=== PATIENT | female | born 1940 | race Caucasian/White ===

== ENCOUNTER 2017-11-22 08:13 | Observation (INO) | payer MEDICARE ==
[2017-11-22] MEDS ORDERED: Ketorolac INJ* 30 MG/ML 1 ML VIAL IV PUSH ONE (08:44)
[2017-11-22] MEDS ORDERED: Morphine INJ** 4 MG/ML 1 ML CARPUJECT IV ONE (08:44)
[2017-11-22] MEDS ORDERED: Bupivacaine 0.5%* 50 ML VIAL INJ ONE (08:44)
[2017-11-22] MEDS ORDERED: NS 0.9% 1000 ML* 1,000 ML IV ONE (08:44)
--- NOTE | 2017-11-22 08:48 | ED ---
Back Pain - HPI Summary HPI Summary: This is leann Barnhart documenting for attending Mitch Oshea MD. This patient is a 77 year old F presenting to [facility] with a chief complaint of a searing R leg pain and back pain since over a week ago that has been worsening. The patient rates the pain 10/10 in severity. The pt reports that the pain radiates up her R leg up to her buttocks and back. She has pain even when sitting without moving. She also reports difficulty ambulating, constipation for days, and loss of appetite (hasnt eaten in the last couple days). Patient denies losing control of bowels or bladder, numbness between legs, fever, abdominal pain, CP, SOB, nausea, vomiting, and numbness in general. She saw her PCP on 11/17 and was prescribed muscle relaxer and tramadol but meds are not helping the pain. The patient is not a smoker. - History of Current Complaint Chief Complaint: EDBackInjuryPain Stated Complaint: RT HIP PAIN Time Seen by Provider: 11/22/17 08:24 Hx Obtained From: Patient, Family/Scallop Cutter Onset/Duration: Sudden Onset, Lasting Weeks - over a week ago Onset/Duration: Started Weeks Ago - over a week ago, Still Present, Worse Since - worsening Timing: Constant Back Pain Location: Is Discrete @ - R leg radiating up to her lower back Severity Initially: Severe Severity Currently: Severe Pain Intensity: 10 Pain Scale Used: 0-10 Numeric Character: Sharp - "Searing" Aggravating Symptom(s): Movement, Walking Associated Signs And Symptoms: Positive: Pain with Weight Bearing, Other - difficulty ambulating, constipation for days, loss of appetite (hasnt eaten in the last couple days). Negative: Bladder Incontinence, Bowel Incontinence - Allergies/Home Medications Allergies/Adverse Reactions: Allergies Allergy/AdvReac Type Severity Reaction Status Date / Time mold Allergy Eyes Verified 11/22/17 08:50 Itchy/Swollen/Red/Watery CHICKEN Allergy ACCORDING Uncoded 08/16/15 08:36 TO ALLERGY TESTING Home Medications: Home Medications Cyclobenzaprine TAB* [Flexeril 10 MG TAB*] 10 mg PO TID PRN 11/22/17 [History Confirmed 11/22/17] Lisinopril 20 mg PO DAILY 11/22/17 [History Confirmed 11/22/17] Tramadol HCl 50 mg PO Q8H PRN 11/22/17 [History Confirmed 11/22/17] methylPREDNISolone [Medrol] 4 mg PO DAILY 11/22/17 [History Confirmed 11/22/17] PMH/Surg Hx/FS Hx/Imm Hx Endocrine/Hematology History: Denies: Hx Diabetes, Hx Thyroid Disease Cardiovascular History: Reports: Hx Hypertension Respiratory History: Denies: Hx Asthma, Hx Chronic Obstructive Pulmonary Disease (COPD) GI History: Reports: Other GI Disorders - OCCASIONAL UNCONTROL BOWEL MOVEMENT, DUE TO DAMAGE FROM RADIATION Denies: Hx Ulcer History: Reports: Hx Kidney Stones - LEFT SIDE, Other Problems/Disorders - LEFT HYDRONEPHROSIS Musculoskeletal History: Reports: Hx Arthritis - RIGHT FOOT, BILATERAL HANDS Sensory History: Denies: Hx Contacts or Glasses, Hx Hearing Aid Opthamlomology History: Denies: Hx Contacts or Glasses - Cancer History Cancer Type, Location and Year: uterine Hx Chemotherapy: No - Surgical History Surgery Procedure, Year, and Place: TONSILLECTOMY A CHILD. 2005 HYSTERECTOMY WITH BILATERAL S&O, [facility]. 2007 LAPAROSCOPIC CHOLECYSTECTOMY, [facility] Hx Anesthesia Reactions: No Infectious Disease History: No Infectious Disease History: Denies: Hx Hepatitis, Hx Human Immunodeficiency Virus (HIV), Traveled Outside the [place] in Last 30 Days - Family History Known Family History: Positive: Hypertension, Other - kidnsey stones - Social History Occupation: Retired Alcohol Use: None Hx Substance Use: No Substance Use Type: Reports: None Hx Tobacco Use: No Smoking Status (MU): Never Smoked Tobacco Review of Systems Negative: Chest Pain Negative: Shortness Of Breath Positive: Other - constipation for days, and loss of appetite (hasnt eaten in the last couple days), denies losing control of bowels . Negative: Abdominal Pain, Vomiting, Nausea Positive: other - denies losing control of bladder Positive: Other - searing R leg pain radiating up her buttocks and back, difficulty ambulating, denies numbness between legs, denies numbness in general All Other Systems Reviewed And Are Negative: Yes Physical Exam - Summary Physical Exam Summary: Appearance: Well appearing, no pain distress Skin: warm, dry, reflects adequate perfusion Head/face: normal Eyes: EOMI, CAMILLE ENT: normal Neck: supple, non-tender Respiratory: CTA, breath sounds present Cardiovascular: RRR, pulses symmetrical Abdomen: non-tender, soft Bowel Sounds: present Musculoskeletal: 2+ patellar reflex, normal tone bilaterally. Tenderness in lower right lumbar musculature and piriformis. Extremely limited ROM due to pain. Positive straight leg raise on right side. Neuro: normal, sensory motor intact, A&Ox3 Triage Information Reviewed: Yes Vital Signs On Initial Exam: Initial Vitals Temp Pulse Resp BP Pulse Ox 97.8 F 79 15 139/62 100 11/22/17 08:20 11/22/17 08:20 11/22/17 08:20 11/22/17 08:20 11/22/17 08:20 Vital Signs Reviewed: Yes Procedures - Procedure Summary Procedure Summary: Trigger point injection: Reason: Right lumbar back pain with radiculopathy Description: The patient was assisted into a left lateral decubitus position. The right lumbar musculature and piriformis area were cleaned with alcohol. These areas were injected with a total of 20 cc of 0.5% bupivacaine and divided aliquots. Pain relief was excellent, allowing her to stand but not walk. She tolerated this well without complication. Diagnostics - Vital Signs Vital Signs Temp Pulse Resp BP Pulse Ox 11/22/17 08:20 97.8 F 79 15 139/62 100 - Laboratory Result Diagrams: 11/22/17 08:53 11/22/17 08:53 Lab Statement: Any lab studies that have been ordered have been reviewed, and results considered in the medical decision making process. - CT Lumbar Spine CT CT Interpretation Completed By: Radiologist - Degenerative disc disease at L5- S1 with broad-based protrusion. Mild spinal stenosis is noted. ED Physician has reviewed this report. - Ultrasound No standard instances Ultrasound Interpretation Completed By: Radiologist - Liver Ultrasound revealed : Patient is status post cholecystectomy with mild intrahepatic duct dilatation. Common duct measures up to 0.8 cm. This may be due to postcholecystectomy state. Pancreatic head is poorly visualized. Fullness of the right renal collecting system is noted. ED Physician has reviewed this report. Re-Evaluation - Re-Evaluation 1 Re-Evaluation Time: 10:43 Change: Improved Comment: Pain is better, but she still can not walk. Will order gallbladder US. He is aware she has no gallbladder, he is ordering it to look at her RUQ because her liver enzymes are elevated. Back Pain Course/Dx - Course Course Of Treatment: Patient with a great deal of discomfort from right radiculopathy. CT scan of the lumbar spine confirms significant degenerative disease and disc protrusion at L5-S1. She has some canal stenosis as well. A trigger point injection as well as standard pain medication has gotten her to the point where she was able to stand. She is still unable to walk at this point. I discussed the case with the neurosurgeon who wishes to have an MRI done this weekend and will see her in consultation. Incidentally, her LFTs are elevated. She has no right upper quadrant pain and has no gallbladder. There is some biliary duct dilation on ultrasound. She'll be admitted to the medical service by the hospitalist team for further evaluation. - Diagnoses Provider Diagnoses: Herniated disc, Lumbar back pain with radiculopathy affecting right lower extremity, Intractable back pain, Elevated LFTs - Provider Notifications Discussed Care Of Patient With: Jeremy Aguilar - Hospitalist Time Discussed With Above Provider: 10:59 Instructed by Provider To: Admit As Inpatient Discharge - Sign-Out/Discharge Documenting (check all that apply): Patient Departure - Discharge Plan Condition: Fair Disposition: ADMITTED TO [facility] - Billing Disposition and Condition Condition: FAIR Disposition: Admitted to [facility] Consult Consult: 10:56 Consult with Alfonzo Young MD from Neuro Surg. who requested an MRI to be done. 11:00 Consult with Obdulia Bourne MD who said they will obtain the MRI during the weekend if they are called in for any other purpose
[2017-11-22 09:01] LABS: ABS Basophils 0.1 10^3/ul (0-0.2); ABS Eosinophils 0.2 10^3/ul (0-0.6); ABS Lymphocytes 1.3 10^3/ul (1.0-4.8); ABS Monocytes 1.2 10^3/ul (0-0.8); ABS Neutrophils 11.7 10^3/ul (1.5-7.7); ABS Nucleated RBC 0 10^3/ul; Eosinophil % 1.1 % (0-6); Hematocrit 42 % (35-47); Hemoglobin 14.1 g/dl (12.0-16.0); Lymphocyte % 8.8 % (25-47); Mean Corpuscular HGB Conc 34 g/dl (31-36); Mean Corpuscular Hemoglobin 31 pg (27-31); Mean Corpuscular Volume 91 fL (80-97); Nucleated Red Blood Cells % 0; Platelet Count 388 10^3/ul (150-450); Red Blood Count 4.55 10^6/ul (4.00-5.40); Red Cell Distribution Width 14 % (10.5-15); White Blood Count 14.5 10^3/ul (3.5-10.8)
[2017-11-22 09:10] LABS: INR 0.99 (0.77-1.02)
[2017-11-22 09:17] LABS: EGFR Non-African American 83.5 (>60)
--- NOTE | 2017-11-22 09:50 | RAD ---
Indication: Right-sided radiculopathy. CT of the lumbar spine was obtained in the axial plane. Sagittal and coronal reconstructed images were obtained. At L5-S1 there is degenerative disc disease. Broad-based protrusion flattens the thecal sac. No central or foraminal stenosis is noted. Moderate facet hypertrophy is noted. At L4-L5 grade 1 spondylolisthesis of L4 on 5 with broad-based protrusion is noted. Facet arthropathy is noted. Moderate degree of spinal stenosis is noted. There is suggestion of broad-based protrusion in the right posterior lateral aspect of the disc space however no definite nerve root impingement is noted. At L3-L4 broad-based protrusion and facet hypertrophy is noted. Mild spinal stenosis is noted. No definite foraminal stenosis is noted. At L2-L3 broad-based protrusion flattens the thecal sac. Moderate degree of facet arthropathy is noted. No central foraminal stenosis is noted. At T12-L1 degenerative disc disease is noted. No central or foraminal stenosis is noted. T11-T12 disc space is normal. IMPRESSION: Degenerative disc disease at L5-S1 with broad-based protrusion. Mild spinal stenosis is noted. At L4-L5 grade 1 spondylolisthesis with broad-based protrusion and facet hypertrophy resulting in moderate degree of spinal stenosis. Broad-based protrusion extensive the foramen however no definite nerve root impingement is noted. Degenerative disc disease at L3-L4 with mild spinal stenosis.
[2017-11-22 09:55] LABS: Urine Appearance Cloudy; Urine Blood Negative (Negative); Urine Color Amber; Urine Ketones 1+ (Negative); Urine Protein 1+(30 mg/dL) (Negative); Urine Red Blood Cell 2+(6-10/hpf) (Absent); Urine Urobilinogen Positive (Negative); Urine White Blood Cell 2+(11-20/hpf) (Absent)
[2017-11-22] MEDS ORDERED: Morphine INJ* 2 MG/ML 1 ML SYRINGE (TWO MG - NEW SYRINGE VERSION) ONE (10:09)
[2017-11-22] MEDS ORDERED: Morphine INJ* 2 MG/ML 1 ML SYRINGE (TWO MG - NEW SYRINGE VERSION) IV ONE (10:10)
[2017-11-22] MEDS ORDERED: Ondansetron INJ* 2 MG/ML VIAL IV PRN (11:54)
[2017-11-22] MEDS ORDERED: Morphine INJ* 2 MG/ML 1 ML SYRINGE (TWO MG - NEW SYRINGE VERSION) IV PRN (11:54)
[2017-11-22] MEDS ORDERED: Cyclobenzaprine TAB* 10 MG PO PRN (11:57)
[2017-11-22] MEDS ORDERED: methylPREDNISolone TAB* 4 MG PO ONE (12:00)
--- NOTE | 2017-11-22 12:12 | RAD ---
Indication: Elevated liver enzymes. Real-time sonography of the right upper quadrant was performed. The liver measures 15.2 cm in length. There are prominent intrahepatic ducts noted. The common duct measures 18 mm. This may be due to postcholecystectomy state. The patient is status post cholecystectomy. The pancreas body and tail appears to be unremarkable with no evidence of pancreatic duct dilatation although the pancreatic head is poorly identified. The right kidney measures 10.6 x 4.4 x 4.7 cm with fullness of the right renal collecting system. IMPRESSION: Patient is status post cholecystectomy with mild intrahepatic duct dilatation. Common duct measures up to 0.8 cm. This may be due to postcholecystectomy state. Pancreatic head is poorly visualized. Fullness of the right renal collecting system is noted.
[2017-11-22] MEDS: Lidocaine PATCH 5%* 1 PATCH TRANSDERM SCH (14:12)
[2017-11-22] MEDS: Heparin VIAL(*) 5000 UNITS/ML VIAL (FIVE THOUSAND) SUBCUT SCH ×2 (14:12→21:24)
--- NOTE | 2017-11-22 16:08 | RAD ---
Indication: Back pain, lumbar radiculopathy. 2 views of the lumbar spine as well as lateral views in flexion and extension demonstrates grade 1 spondylolisthesis of L4 on 5. Endplate changes at L5-S1 is noted. No fracture is noted. Dextroscoliosis centered at L2-L3. IMPRESSION: Grade 1 spondylolisthesis of L4 on 5. Degenerative disc disease at L5-S1 with osteophyte formation.
[2017-11-22] MEDS: Ascorbic Acid TAB* 500 MG PO SCH (16:34)
[2017-11-22] MEDS: Lisinopril TAB* 10 MG PO SCH (16:35)
[2017-11-22] MEDS: Cholecalciferol TAB* 1000 UNITS PO SCH (16:35)
[2017-11-22] MEDS ORDERED: CALCIUM CARBONATE PO SCH (18:00)
[2017-11-22] MEDS ORDERED: MAGNESIUM OX PO SCH (18:00)
[2017-11-22] MEDS ORDERED: cefTRIAXone(*) 1 GM in NS 0.9% 50 ML* 50 ML IVPB SCH (19:00)
--- NOTE | 2017-11-22 20:35 | HP ---
CC: Dr. Frances Capellan * MEDICINE HISTORY AND PHYSICAL: DATE OF ADMISSION: 11/22/17 PROVIDER: Chandra Gallo NP ATTENDING PHYSICIAN: Dr. Jeremy Aguilar * (as dictated by Chandra Gallo NP) . CONSULTING PHYSICIAN: Dr. Alfonzo Young, Neurosurgery. PRIMARY CARE PROVIDER: Dr. Frances Capellan. CHIEF COMPLAINT: Back pain and right leg pain. HISTORY OF PRESENT ILLNESS: Ms. Gil is a 77-year-old female who is relatively in good health, who presented to [facility] ER with a complaint of significant right leg pain and low back pain that has been ongoing for a couple of weeks. Her family states that the patient has had some difficulty walking for a while and reports that they have often seen her holding her back, holding her right lower back or leg in discomfort. She reports that it started to worsen over this past week. The pain radiates up her right leg up to the buttocks and back. It has become pretty constant. It is aggravated by ambulation and certain positions and had been alleviated by medications that were prescribed for her. She did see her primary care provider on 11/17/17 and was started on Flexeril, tramadol, and a Medrol Dosepak. The medications helped for the first day but then became ineffective for her pain. She reports difficulty ambulating, constipation, and decreased appetite. She denies any bowel or bladder incontinence, fever, neck pain, chest pain, trouble breathing, abdominal pain, nausea, vomiting, or dysuria. She denies any decreased sensation or numbness. She does report intermittent diarrhea what she attributes to IBS. In the ER, she had a CT of the lumbar spine, which showed degenerative disk disease at L5-S1 with broad-based protrusion, mild spinal stenosis was noted. She did receive a bupivacaine injection with some relief as well as Toradol and morphine. Incidentally, on her labs, she was noted to have a mildly elevated white blood cell count of 14.5 and elevated liver enzymes. She did have a liver ultrasound , which showed mild intrahepatic duct dilatation and she is status post cholecystectomy. PAST MEDICAL HISTORY: Includes: 1. Hypertension. 2. Irritable bowel syndrome. 3. Vertigo. 4. Uterine cancer, status post radiation therapy and surgical removal. 5. History of left hydroureteronephrosis. PAST SURGICAL HISTORY: Include cholecystectomy and SALLY and BSO. MEDICATIONS: Home medications: 1. Ascorbic acid 500 mg q.p.m. 2. Calcium/magnesium supplement 1 tab q.p.m. 3. Cholecalciferol 1000 units q.p.m. 4. Ibuprofen 600 mg q.8 hours p.r.n. 5. Multivitamin 1 tab daily. 6. Lisinopril 20 mg q.p.m. 7. Medrol Dosepak as directed. She has 2 days left. 8. Flexeril 10 mg t.i.d. p.r.n. 9. Tramadol 50 mg q.8 hours p.r.n. ALLERGIES: Include CHICKEN and MOLD. FAMILY HISTORY: She reports her mother had a history of hypertension, liver cancer, and thyroid disease. SOCIAL HISTORY: She reports a remote history of smoking when she was teenager, but denies any tobacco use since that time. She denies any alcohol or illicit drug use. 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 She is . She lives with her daughter. She is mostly independent, although she does have 4 steps into her house that she has to navigate in order to get to her living space. Her daughter, Haydee Tate, is her surrogate decision maker and healthcare proxy in the event of emergency. REVIEW OF SYSTEMS: As per HPI. All other systems not mentioned are negative. An 11-point review of systems was completed. PHYSICAL EXAMINATION GENERAL: This is a 77-year-old female who is pleasant, interactive, well appearing, in no acute distress. VITAL SIGNS: Temperature 97.9, pulse rate 84, respiratory rate 15, blood pressure 133/62, and O2 saturation is 95% on room air. HEENT: Head is atraumatic, normocephalic. Face is symmetrical. Pupils are equal, round, and reactive to light and accommodation. Extraocular movements are intact. Oral mucosa is moist. NECK: Supple. There is no lymphadenopathy appreciated. She has full range of motion. It is nontender. RESPIRATORY: Lungs are clear to auscultation. CARDIAC: S1, S2 heart sounds with regular rate and rhythm. No murmurs, rubs, or gallops. No peripheral edema noted. Distal pulses are 2+ and present bilaterally. ABDOMEN: Soft, nontender, nondistended. Bowel sounds are normoactive. There is mild discomfort with deep palpation of the right flank and abdomen. MUSCULOSKELETAL: There is no clubbing or cyanosis. There is tenderness to her low lumbar sacral spine as well as the paraspinal muscles on the right piriformis. Straight leg raise is positive on the right side at 30 to 45 degrees. NEUROLOGIC: She is able to move all extremities. Sensation is intact to light touch. No focal deficits noted. Speech is fluent. She is alert and oriented x3. SKIN: Warm, dry. Appears grossly intact. DIAGNOSTIC STUDIES/LAB DATA: CBC: WBC 14.5, hemoglobin 14.1, hematocrit 42, platelet count 388. CMP: Sodium 135, potassium 3.6, chloride 97, BUN 16, creatinine 0.68, glucose 101, calcium 9.4. Total bilirubin 1.9, AST 152, ALT 359, alk phos 267. Albumin 4.0. TSH 1.14. UA shows positive protein, ketones , urobilinogen, leukocyte esterase is 1+, wbc's 2+, rbc's 2+, bacteria 1+. Diagnostic studies as per HPI. Old medical records were reviewed. ASSESSMENT AND PLAN: This is a 77-year-old female who presents today with concern for lumbar radiculopathy with right side affected and concern for unsafe ambulation at this point in time. She will be admitted under observation to the medical floor. Plans are as follows: 1. Lumbar radiculopathy with right side affected. Neurosurgery was consulted in the ER and he did evaluate the patient. He has requested that we obtain lumbar spine x-rays with flexion and extension, which have been ordered. She will also need an MRI, which likely cannot be done over the weekend unless the MRI team is called in. They are aware that if they come in over weekend that the patient will need an MRI. She has had some improvement following medications that she received in the ER. She is encouraged to get up and to ambulate with assistance. PT and OT is ordered. We will continue with pain management by continuing her Medrol dose taper as well as utilizing p.r.n. IV morphine and her home tramadol and Flexeril. We will also try lidocaine patch to the right gluteal area. She had localized pain there and to see this provides any additional pain relief or comfort. We could also consider adding Toradol as well for additional pain relief. 2. Elevated liver function studies. There were no liver abnormalities noted on her ultrasound. There was mild intrahepatic duct dilatation seen. I cannot appreciate any hepatomegaly. This may be in reaction to inflammation. Certainly, we will follow the liver studies with a repeat liver panel tomorrow. 3. Urinalysis abnormalities. The patient does not really endorse dysuria. I do note there is 1+ bacteria, but negative nitrites in her urine, so we will wait for the microbiology to come back before considering initiation of antibiotics. She is afebrile. I do note that she has right-sided flank pain with deep palpation, but CVA tenderness is negative. This actually could have been some referred pain from the way she was positioned from her back. She has been advised to notify staff if this pain returns or persists. It was not reproducible at a later assessment time. At this point in time, I am inclined to wait for her UA to return and follow up with that or to monitor for fevers or other urinary symptoms. 4. History of hypertension. Continue lisinopril. 5. FEN. The patient has had decreased appetite. She is ordered a regular diet to encourage p.o. intake. 6. Code status. She is a full code. She does have a healthcare proxy as previous listed, but she has no advance directives or MOLST. 7. DVT prophylaxis. Subcu heparin. 8. Disposition. OBV status with planned disposition to home at this time. The patient may need short-term rehab if there was concern for safety. TIME SPENT: Time spent on this admission was approximately 60 minutes with more than half that the time spent [id number] with the patient and family obtaining history and physical, performing physical examination, and reviewing the plan of care. Plan of care was also reviewed with my attending, Dr. Aguilar. CHANDRA GALLO, HEATING UNIT MECHANIC [id number]/[facility] #: [id number] [facility]ENT
--- NOTE | 2017-11-22 20:59 | CONS ---
CONSULTATION NOTE: DATE OF CONSULT: 11/22/17 HISTORY OF PRESENT ILLNESS: The patient is a very pleasant 77-year-old female who was evaluated in the [facility] Emergency Room with complaints of back pain radiating to the right lower extremity for approximately 1 week. The patient was found to have intractable pain and was admitted for pain control after CT scan findings confirmed degenerative disk disease with calcified disk herniation at L5-S1. The patient had a trigger point injection in the emergency room by emergency room physician with significant relief of her pain. The patient was seen in the emergency room. The patient reports that the pain was of insidious onset, started approximately 1 week ago. She started experiencing in the right lower extremity all the way down to her knee and occasionally to her foot with the lower extremity being the worst component. The patient reports that she feels she has some mild antalgic weakness on the right lower extremity with numbness in the right lower extremity all the way down to her feet. The patient denies any urinary or GI incontinence. The patient has difficulty ambulating. She had to use a cane and recently was not able to ambulate. 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 PAST MEDICAL HISTORY: The patient reports history of hypertension, occasional GI incontinence due to previous radiation, kidney stones, left hydronephrosis, osteoarthritis, uterine cancer. PAST SURGICAL HISTORY: The patient has a history of tonsillectomy, hysterectomy with bilateral S and O, laparoscopic cholecystectomy. HOME MEDICATIONS: The patient is on: 1. Flexeril. 2. Lisinopril. 3. Tramadol. 4. Methylprednisolone. ALLERGIES: The patient is allergic to MOLD and CHICKEN. FAMILY HISTORY: Hypertension, kidney stones. SOCIAL HISTORY: Tobacco history, negative. Alcohol, negative. Recreational drug use, negative. PHYSICAL EXAM: The patient is not in acute distress. She is resting comfortable in her bed. She does have difficulty moving from one side to the other. She has no tenderness to palpation over the cervical, thoracic, or lumbar spine. She has free range of motion of cervical spine. She is awake, alert, oriented x3. Her pupils are equal and reactive. Cranial nerves II through XII are grossly intact. Motor 5/5 in all extremities with the exception of the right lower extremity, which is 4/5, possibly antalgic. Sensory is grossly intact to light touch. Deep tendon reflexes +1 bilaterally. No clonus. No Babinski. River is negative. Straight leg test negative in the supine position. Pedal pulses present bilaterally. DIAGNOSTIC STUDIES/LAB DATA: The patient had a CT scan of the lumbar spine revealing degenerative disk disease with a grade 1 L4-L5 spondylolisthesis with L5- S1 degenerative disk disease with disk height loss and almost autofusion with disk bulging at L5-S1 with calcification. ASSESSMENT: The patient is a very pleasant 77-year-old female with complaints of right lower extremity with CT scan findings consistent with degenerative disk disease. PLAN: The patient at this point has significant difficulties with her pain. She is not able to ambulate and for this reason, she will be admitted for pain control. We would recommend an MRI of her lumbar spine as well as flexion and extension x- rays of the lumbar spine and pain control. We will discuss possibility of surgical intervention if her pain does not alleviate with conservative treatment modalities including pain medication, physical therapy, and possible steroid injections, in case MRI and the flexion and extension confirm the presence of a surgical problem. We discussed in details the plan with the patient and her daughter at the bedside. Full instructions were given to the patient and her daughter. Thank you for allowing us to participate in the care of this patient. Please do not hesitate to contact our office in case you have any further questions or concerns regarding the care of this patient. [id number]/[facility] #: [id number] [facility]
[2017-11-22] MEDS: Lidocaine Patch REMOVE* 1 NOTE MISC SCH (21:25)
[2017-11-23] MEDS: Heparin VIAL(*) 5000 UNITS/ML VIAL (FIVE THOUSAND) SUBCUT SCH ×3 (05:30→20:55)
[2017-11-23 06:50] LABS: ABS Basophils 0 10^3/ul (0-0.2); ABS Eosinophils 0.2 10^3/ul (0-0.6); ABS Lymphocytes 1.5 10^3/ul (1.0-4.8); ABS Neutrophils 8.7 10^3/ul (1.5-7.7); ABS Nucleated RBC 0 10^3/ul; Eosinophil % 1.4 % (0-6); Hematocrit 37 % (35-47); Hemoglobin 12.7 g/dl (12.0-16.0); Lymphocyte % 13.3 % (25-47); Mean Corpuscular HGB Conc 34 g/dl (31-36); Mean Corpuscular Hemoglobin 31 pg (27-31); Mean Corpuscular Volume 91 fL (80-97); Mean Platelet Volume 8.4 um3 (7.4-10.4); Nucleated Red Blood Cells % 0; Platelet Count 308 10^3/ul (150-450); Red Blood Count 4.05 10^6/ul (4.00-5.40); Red Cell Distribution Width 14 % (10.5-15); White Blood Count 11.5 10^3/ul (3.5-10.8)
[2017-11-23 07:07] LABS: EGFR Non-African American 100.3 (>60)
[2017-11-23] MEDS: Lidocaine PATCH 5%* 1 PATCH TRANSDERM SCH (08:50)
[2017-11-23] MEDS: traMADol TAB* 50 MG PO PRN ×3 (08:55→23:39)
[2017-11-23] MEDS ORDERED: methylPREDNISolone TAB* 4 MG PO ONE (09:00)
[2017-11-23] MEDS ORDERED: MULTIVITAMIN PO SCH (09:00)
[2017-11-23] MEDS ORDERED: FOLIC ACID PO SCH (09:00)
--- NOTE | 2017-11-23 14:10 | PN ---
Subjective Date of Service: 11/23/17 Interval History: Pain lower back to R leg, also new R knee pain and swelling. Objective Active Medications: Ascorbic Acid (Vitamin C Tab*) 500 mg PO QPM [facility] Last Admin: 11/22/17 16:34 Dose: 500 mg Cholecalciferol (Vitamin D Tab*) 1,000 units PO QPM [facility] Last Admin: 11/22/17 16:35 Dose: 1,000 units Cyclobenzaprine HCl (Flexeril Tab*) 10 mg PO TID PRN PRN Reason: muscle spasm Heparin Sodium (Porcine) (Heparin Vial(*)) 5,000 units SUBCUT Q8HR [facility] Last Admin: 11/23/17 12:52 Dose: 5,000 units Lidocaine (Lidoderm 5% Patch*) 1 patch TRANSDERM DAILY [facility] Last Admin: 11/23/17 08:50 Dose: 1 patch Lisinopril (Prinivil Tab*) 20 mg PO QPM [facility] Last Admin: 11/22/17 16:35 Dose: 20 mg Morphine Sulfate (Morphine Inj ((Syringe))*) 2 mg IV Q4H PRN PRN Reason: PAIN - MILD Last Admin: 11/23/17 05:30 Dose: 2 mg Ondansetron HCl (Zofran Inj*) 4 mg IV Q6H PRN PRN Reason: NAUSEA/VOMITING Pharmacy Profile Note (Lidocaine Patch Remove*) 1 note N/A 2100 [facility] Last Admin: 11/22/17 21:25 Dose: 1 note Tramadol HCl (Ultram*) 50 mg PO Q6H PRN PRN Reason: PAIN Last Admin: 11/23/17 08:55 Dose: 50 mg Vital Signs - 8 hr 11/23/17 11/23/17 11/23/17 06:54 08:06 08:55 Temperature 98.0 F Pulse Rate 67 Respiratory 18 18 16 Rate Blood Pressure 114/50 (mmHg) O2 Sat by Pulse 100 Oximetry 11/23/17 11/23/17 11/23/17 09:03 11:03 11:54 Temperature 98.2 F Pulse Rate 73 Respiratory 18 16 20 Rate Blood Pressure 131/55 (mmHg) O2 Sat by Pulse 97 Oximetry Oxygen Devices in Use Now: None Appearance: Alert, partly up in bed. In good spirits. Looks comfortable. Eyes: No Scleral Icterus Respiratory: Symmetrical Chest Expansion and Respiratory Effort, Clear to Auscultation, Clear to Percussion Cardiovascular: NL Sounds; No Murmurs; No JVD, RRR, No Edema, - Extremities: No Edema, No Clubbing, Cyanosis, - - R knee sl swollen, sl tender Skin: No Rash or Ulcers, No Nodules or Sclerosis, - Neurological: Alert and Oriented x 3, NL Sensation Result Diagrams: 11/23/17 05:59 11/23/17 05:59 Microbiology and Other Data: Microbiology 11/22/17 09:43 Urine Culture - Final Urine Assess/Plan/Problems-Billing Assessment: - Patient Problems (1) Low back pain Current Visit: Yes Status: Acute Code(s): M54.5 - LOW BACK PAIN SNOMED Code(s): 971097479 Comment: NS consult appreciated. MRI lumbar spine pending. Note just completed methylprednisolone 6 day course. (2) Abnormal LFTs Current Visit: Yes Status: Acute Code(s): R94.5 - ABNORMAL RESULTS OF LIVER FUNCTION STUDIES SNOMED Code(s): 695155078 Comment: Improve 11/23, Hep C Ab add on requested. Needs outpt fup. (3) HTN (hypertension) Current Visit: Yes Status: Acute Code(s): I10 - ESSENTIAL (PRIMARY) HYPERTENSION SNOMED Code(s): 89579793 Comment: Continue lisinopril 20 mg daily (4) Right knee pain Current Visit: Yes Status: Acute Code(s): M25.561 - PAIN IN RIGHT KNEE SNOMED Code(s): 17145379 Comment: X-ray ordered.
--- NOTE | 2017-11-23 14:48 | RAD ---
Indication: Right knee pain. 2 views of the right knee demonstrate soft tissue swelling. Degenerative changes of the patellofemoral joint is noted. Medial and lateral collateral joint space is unremarkable. IMPRESSION: Degenerative changes of the patellofemoral joint.
[2017-11-23] MEDS: Lisinopril TAB* 10 MG PO SCH (16:25)
[2017-11-23] MEDS: Ascorbic Acid TAB* 500 MG PO SCH (16:25)
[2017-11-23] MEDS: Cholecalciferol TAB* 1000 UNITS PO SCH (16:26)
[2017-11-23] MEDS: Lidocaine Patch REMOVE* 1 NOTE MISC SCH (20:57)
--- NOTE | 2017-11-23 22:51 | PN ---
Progress Note - Progress Note Date of Service: 11/23/17 SOAP: Subjective: []Patient seen earlier today. Tolerates PO. C/o Rt knee edema and pain. Objective: []VSS AAOx3, CAMILLE, CN II-XII grossly intact Motor 4-5/5 except Rt LE 4/5, possible antalgic. Rt Knee edema Sensory grossly intact to light touch. Assessment: []77 yo f back pain , Right LE pain. DDD, L4-5 spondylolisthesis Plan: []Monitor VS, Neurochecks. MRI pending Rt Knee XR was ordered. Consider Ortho consult. Patient reports remote hx of Gout. Justin Young MD
[2017-11-24] MEDS: Heparin VIAL(*) 5000 UNITS/ML VIAL (FIVE THOUSAND) SUBCUT SCH ×2 (05:15→15:02)
[2017-11-24] MEDS: traMADol TAB* 50 MG PO PRN (08:57)
[2017-11-24] MEDS: Lidocaine PATCH 5%* 1 PATCH TRANSDERM SCH (08:58)
--- NOTE | 2017-11-24 12:15 | RAD ---
Indication: Low back pain and RIGHT leg weakness. Comparison: November 22, 2017 radiographs. November 22, 2017 CT. July 12, 2015 CT. Technique: Aunt Berthaa 1.5 Nicole [id number] with GEM suite. Noncontrast MRI lumbar sacral spine. Report: Grossly nondisplaced H-type sacral insufficiency fracture involving bilateral sacral ala and S2 sacral vertebral body. Associated bone marrow edema. No additional fractures evident. Slight grade 1 degenerative L4-L5 anterolisthesis without change. Unremarkable conus medullaris and cauda equina. T12-L1: Small posterior central disc protrusion without resulting spinal stenosis. L1-L2: Moderately severe disc space narrowing and desiccation. Mild broad posterior disc protrusion with only minimal resulting impression on thecal sac. Facet joint osteoarthritis results in mild LEFT foraminal stenosis. L2-L3: Mild annular disc bulge. Degenerative spondylosis and facet joint osteoarthritis results in mild LEFT foraminal stenosis. L3-L4: Moderate disc space narrowing. Mild annular disc bulge. Degenerative spondylosis and facet joint osteoarthritis results in mild RIGHT foraminal stenosis. L4-L5: Mild disc space narrowing. Slight uncovering of the disc due to minimal grade 1 degenerative anterolisthesis. Negative for spinal stenosis. L5-S1: Complete disc space loss. Annular disc bulge. Negative for central canal stenosis. Degenerative spondylosis and facet joint osteoarthritis results in mild RIGHT and moderate LEFT foraminal stenosis. IMPRESSION: #. Grossly nondisplaced H-type sacral insufficiency fracture with edema indicating acute or subacute age of fracture is new compared with the July 12, 2015 CT. #. Multilevel degenerative spondylosis and posterior element osteoarthritis with associated multilevel predominant mild foraminal stenosis with more significant moderate LEFT foraminal stenosis at L5-S1. #. Guzman images saved on the [facility] [place].
[2017-11-24] MEDS ORDERED: traMADol TAB* 50 MG PO PRN (12:44)
--- NOTE | 2017-11-24 13:09 | PN ---
"Progress Note - Progress Note Date of Service: 11/24/17 Note: Search Terms: jesusita pinedo, 1940 Search Date: 11/24/2017 01:08:57 PM The Drug Utilization Report below displays all of the controlled substance prescriptions, if any, that your patient has filled in the last twelve months. The information displayed on this report is compiled from pharmacy submissions to the Department, and accurately reflects the information as submitted by the pharmacies. This report was requested by: Jerrod Cox | Reference #: [id number] Others' Prescriptions Patient Name: Jesusita Piendo Date: 1940 Address: [address] [place] [address] Sex: Female Rx Written Rx Dispensed Drug Quantity Days Supply Prescriber Name 11/17/2017 11/17/2017 tramadol hcl 50 mg tablet 15 5 Frances Capellan MD"
--- NOTE | 2017-11-24 13:16 | RAD ---
Indication: RIGHT foot pain and tenderness dorsal surface. No preceding injury. Comparison: Report from March 12, 2008. Technique: AP and lateral views RIGHT foot Report: Negative for fracture or malalignment. Severe osteophytosis at the dorsal margin of the tarsometatarsal joints likely most prominent involving the second tarsometatarsal joint. Associated joint space narrowing. Less marked degenerative arthropathy at the first metatarsal phalangeal joint. Bone density appears decreased throughout. No cortical disruption or suspicious trabecular irregularity to suggest fracture. Soft tissue swelling most prominent over the dorsum of the foot at the level of the tarsal metatarsal joints. IMPRESSION: #. 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
[2017-11-24 13:50] VITALS: BP 140/59
--- NOTE | 2017-11-24 22:50 | DS ---
CC: Dr. Capellan * DISCHARGE SUMMARY: DATE OF ADMISSION: 11/22/17 DATE OF DISCHARGE: 11/24/17 HISTORY OF PRESENT ILLNESS/HOSPITAL COURSE: This 77-year-old woman presented with low back pain and right leg pain. This has been going on for 2 weeks or so. She was given a Medrol Dosepak on 11/17/17, which she has completed. There was really no benefit from this. She had a bupivacaine injection I believe in the emergency room with some relief. CT scan showed degenerative disk disease at L5-S1. She had an MRI of the lumbar spine on the day of discharge, 11/24/17. This showed grossly nondisplaced H-type sacral insufficiency fracture with edema indicating acute or subacute H fracture, new compared with the study of 07/12/15. There was multilevel degenerative spondylosis and posterior element osteoarthritis with multilevel predominant mild foraminal stenosis with more significant moderate left foraminal stenosis at L5-S1. X-ray of the right knee showed patellofemoral arthritis and soft tissue edema. X-ray of the right foot has been completed and the report is pending at this time. The physical findings were limited really to tenderness. I would expect to find some degree of arthritis in the foot and I am not expecting any other findings. The tramadol seemed to be of help. She is able to ambulate adequately at home. She has considerable family support even though she does live alone. She will follow up with Dr. Capellan. A vitamin D level was sent and is pending at the time of this dictation. DISCHARGE DIAGNOSES: 1. Pelvic insufficiency fracture. 2. Abnormal liver function tests with negative hepatitis C antibody. 3. Hypertension. 4. Arthritis of right knee. Report of x-ray of right foot is pending at the time of this dictation as is the vitamin D level. DISCHARGE MEDICATIONS: 1. Ibuprofen 600 mg every 8 hours p.r.n. 2. Calcium carbonate with magnesium oxide 1 tablet every evening. 3. Vitamin D 1000 units every evening. 4. Ascorbic acid 500 mg every evening. 5. Women's Multivitamin daily. 6. Lisinopril 20 mg daily. 7. Cyclobenzaprine 10 mg t.i.d. p.r.n. 8. Tramadol 50 mg every 8 hours p.r.n., prescription for 25 tablets. [id number]/[facility] #: [id number] [facility]
--- NOTE | 2017-12-09 03:59 | DS ---
DISCHARGE SUMMARY ADDENDUM: CONDITION ON DISCHARGE: Stable. DISPOSITION ON DISCHARGE: Discharged home. FOLLOWUP: Dr. Frances Capellan [id number]/[facility] #: [id number] [facility]
== END 2017-11-24 15:00 | disposition home or self-care (01) ==
LOC: ED 08:13 → MED 11:46
PROVIDERS: ADMIT Internal Medicine; ATTEND Internal Medicine
DX: M54.5 Low back pain (principal); M84.454A Pathological fracture, pelvis, initial encounter for fracture; R94.5 Abnormal results of liver function studies; I10 Essential (primary) hypertension; M13.861 Other specified arthritis, right knee; K58.9 Irritable bowel syndrome, unspecified; R42 Dizziness and giddiness; M51.24 Other intervertebral disc displacement, thoracic region
CPT/HCPCS: 36415; 72110; 72131; 72148; 76705; 80048; 80053; 80076; 81003; 81015; 82306; 84443; 85025; 85610; 85730; 86803; 87086; 96374; 96375; 99284; A9270-GY; G0378; G8978-GP-CJ; G8979-GP-CI; J0696; J1644; J1885; J2270; J7509

== ENCOUNTER 2018-11-05 13:33 | Emergency (ER) | payer MEDICARE ==
[2018-11-05 13:44] VITALS: BP 147/71
--- NOTE | 2018-11-05 14:04 | UC ---
Lower Extremity/Ankle HPI - HPI Summary HPI Summary: 78-year-old female who has had some lower leg and foot swelling over the past 3 days. She has had this in the past although she said it's never been quite this much. She had back surgery about a year ago and since then she does have occasional swelling to her right lower foot and leg. No history of congestive heart failure. She denies any chest pain or difficulty breathing. She denies any leg pain or calf pain. - History of Current Complaint Chief Complaint: UCLowerExtremity Stated Complaint: SWOLLEN LEGS Hx Obtained From: Patient, Family/Channel Process Supervisor ?: No Onset/Duration: Gradual Onset Severity Initially: Mild Severity Currently: Mild Pain Intensity: 4 Aggravating Factor(s): Nothing Alleviating Factor(s): Nothing Able to Bear Weight: Yes - Allergies/Home Medications Allergies/Adverse Reactions: Allergies Allergy/AdvReac Type Severity Reaction Status Date / Time chicken derived Allergy Unknown Verified 11/05/18 13:44 Reaction Details mold Allergy Eyes Verified 11/05/18 13:44 Itchy/Swollen/Red/Watery CHICKEN Allergy ACCORDING Uncoded 11/05/18 13:44 TO ALLERGY TESTING PMH/Surg Hx/FS Hx/Imm Hx Previously Healthy: Yes Cardiovascular History: Hypertension Cancer History: Other - Uterine cancer. - Surgical History Surgical History: Yes Surgery Procedure, Year, and Place: gallballer, hysterectomy, tonsils - Family History Known Family History: Positive: None, Hypertension, Other - kidnsey stones Family History: R & n/C - Social History Occupation: Retired Alcohol Use: None Substance Use Type: None Smoking Status (MU): Never Smoked Tobacco Review of Systems All Other Systems Reviewed And Are Negative: Yes Skin: Positive: Other - Gradual swelling over the past 3 days to her lower legs bilaterally the right is worse than the left. Is Patient Immunocompromised?: No Physical Exam Triage Information Reviewed: Yes Appearance: Well-Appearing, No Pain Distress, Well-Nourished Vital Signs: Initial Vital Signs Temp 98 F 11/05/18 13:40 Pulse 95 11/05/18 13:40 Resp 16 11/05/18 13:40 BP 147/71 11/05/18 13:40 Pulse Ox 98 11/05/18 13:40 Vital Signs Reviewed: Yes Respiratory: Positive: Lungs clear, Normal breath sounds, No respiratory distress, No accessory muscle use Cardiovascular: Positive: RRR, No Murmur, Pulses Normal, Brisk Capillary Refill Musculoskeletal: Positive: Strength Intact, ROM Intact - Good peripheral pulses neuro sensation capillary refill, full range of motion, the right foot has just minimal warmth to it but nontender on palpation. Calves are nontender. Neurological: Positive: Alert, Muscle Tone Normal Psychological Exam: Normal Skin: Positive: Other - See above notes Lower Extremity Course/Dx - Course Course Of Treatment: Bilateral venous Doppler:FINDINGS: The common femoral, femoral, profunda femoral and popliteal veins all demonstrate normal compressibility, augmentation with compression and phasic response with respiration. The posterior tibial and peroneal veins demonstrate normal compressibility and augmentation with compression. Examination of the peroneal veins was limited due to edema. IMPRESSION: SLIGHTLY LIMITED EXAM OF THE CALVES, NO EVIDENCE FOR DEEP VENOUS THROMBOSIS. BNP and BMP a were drawn after consultation with Dr. Lopez. The patient is to elevate her legs as much as possible. She is to follow-up with her primary care provider on Friday for a definite recheck. The daughter stated that she will make sure she does this. She is to go to the emergency room if she develops any shortness of breath, chest pain difficulty breathing. I advised the daughter and patient we would call them when the lab results are back if there is anything abnormal. - Differential Dx/Diagnosis Provider Diagnosis: Pedal edema Discharge - Sign-Out/Discharge Documenting (check all that apply): Patient Departure All imaging exams completed and their final reports reviewed: Yes - Discharge Plan Condition: Fair Disposition: HOME Patient Education Materials: Leg Edema (ED) Referrals: Frances Capellan MD [Primary Care Provider] - Additional Instructions: Call your primary care physician today and make an appointment to be rechecked on Friday. If you develop any difficulty breathing, chest pain fever chills or worsening symptoms follow-up in the emergency room. Elevate your legs as much as possible. - Billing Disposition and Condition Condition: FAIR Disposition: Home - Attestation Statements Provider Attestation: I was available for consult. This patient was seen by the [facility]. The patient was not presented to, seen by, or examined by me. Zuly
[2018-11-05 19:37] LABS: Calcium 9.8 mg/dL (8.6-10.3); Potassium 4.2 mmol/L (3.5-5.0)
[2018-11-05 19:42] LABS: EGFR African American 94.3 (>60); EGFR Non-African American 77.9 (>60)
== END 2018-11-05 15:53 | disposition home or self-care (01) ==
LOC: UCEAST 13:33
DX: R60.9 Edema, unspecified (principal); I10 Essential (primary) hypertension; Z85.42 Personal history of malignant neoplasm of other parts of uterus
CPT/HCPCS: 36415; 80048; 83735; 83880; 93970; 99201; G0463

== ENCOUNTER 2022-12-12 11:31 | Inpatient (IN) ==
[2022-12-12 12:52] LABS: Hematocrit 39.7 % (35-45); Hemoglobin 11.9 g/dL (11.5-14.3); Mean Corpuscular Hemoglobin 18.8 pg (27-33); Mean Corpuscular Volume 62.6 fL (80-97); Red Blood Count 6.34 10^6/uL (3.63-4.92); Red Cell Distribution Width 27.2 % (12-17); White Blood Count 49.3 10^3/uL (3.8-11.8)
[2022-12-12 12:55] LABS: Albumin 3.6 g/dL (3.2-5.2); Albumin/Globulin Ratio 1.5 (1-3); Calcium 8.4 mg/dL (8.6-10.3); Creatinine, Serum 0.61 mg/dL (0.51-0.95); Globulin 2.4 g/dL (2-4); Magnesium 1.8 mg/dL (1.9-2.7); Potassium 3.8 mmol/L (3.5-5.0); Total Bilirubin 1.6 mg/dL (0.2-1.0); eGFR CKD-EPI 88.1 (>60)
[2022-12-12 13:40] LABS: Hypochromasia 2+; Microcytosis 3+
[2022-12-12 13:41] LABS: Anisocytosis 3+; Tear Drop Cells 1+
[2022-12-12 13:42] LABS: ABS Basophils 0.3 10^3/uL (0.0-0.1); ABS Eosinophils 0.3 10^3/uL (0.0-0.5); ABS Lymphocytes 1.3 10^3/uL (1.0-4.8); ABS Monocytes 1.4 10^3/uL (0.0-0.9); ABS Nucleated RBC 0.07 10^3/ul; Eosinophil % 0.7 %; Lymphocyte % 2.6 %; Mean Platelet Volume 8.5 fL (7.5-11.2); Nucleated Red Blood Cells % 0.1 /100 WBC (0.0-0.4); Platelet Count 238 10^3/uL (150-450); Platelet Morphology Large
[2022-12-12 13:42] LABS: High Sensitivity Troponin 1 Hr 16 pg/mL (<15)
[2022-12-12 13:45] LABS: TSH Ultra Thyroid Stim Horm 1.12 mcIU/mL (0.34-5.60)
[2022-12-12] MEDS ORDERED: cefTRIAXone 1 gm/50 mL D5W 1 GM/50 ML BAG IV ONE (13:45)
[2022-12-12] MEDS ORDERED: Azithromycin 500 mg/250 ml NS 500 MG/250 ML BAG IVPB ONE (13:45)
[2022-12-12] MEDS ORDERED: NORMOSOL R PH IV ONE (13:45)
[2022-12-12] MEDS: NS 0.9% 1000 ml BAG 1,000 ML IV SCH ×2 (14:43→15:48)
[2022-12-12] MEDS ORDERED: Magnesium Sulfate 2 gm BAG 2 GM/50 ML BAG IVPB ONE (14:59)
[2022-12-12 15:17] LABS: C Reactive Protein 83.15 mg/L (<8.01)
[2022-12-12] MEDS: Acetaminophen IV 1 GM/100ML 1,000 MG/100 ML BAG IV PRN (15:23)
[2022-12-12 16:13] LABS: Urine Appearance Clear; Urine Bilirubin Negative (Negative); Urine Blood Negative (Negative); Urine Color Yellow; Urine Glucose Negative (Negative); Urine Ketones Negative (Negative); Urine Nitrite Negative (Negative); Urine Protein Negative (Negative); Urine Urobilinogen Negative (Negative)
[2022-12-13 06:46] LABS: Calcium 7.9 mg/dL (8.6-10.3); Creatinine, Serum 0.61 mg/dL (0.51-0.95); Magnesium 1.9 mg/dL (1.9-2.7); Potassium 3.7 mmol/L (3.5-5.0); eGFR CKD-EPI 88.1 (>60)
[2022-12-13 07:28] LABS: Anisocytosis 3+; Hemoglobin 12.3 g/dL (11.5-14.3); Hypochromasia 1+; Mean Corpuscular Hemoglobin 18.6 pg (27-33); Mean Corpuscular Hgb Conc 29.3 g/dL (31-36); Mean Corpuscular Volume 63.4 fL (80-97); Microcytosis 2+; Polychromasia 1+; Red Blood Count 6.62 10^6/uL (3.63-4.92); White Blood Count 55.5 10^3/uL (3.8-11.8)
[2022-12-13 07:29] LABS: ABS Basophils 0.7 10^3/uL (0.0-0.1); ABS Eosinophils 0.2 10^3/uL (0.0-0.5); ABS Lymphocytes 1.5 10^3/uL (1.0-4.8); ABS Neutrophils 51.1 10^3/uL (1.5-7.6); ABS Nucleated RBC 0.07 10^3/ul; Eosinophil % 0.4 %; Lymphocyte % 2.7 %; Nucleated Red Blood Cells % 0.1 /100 WBC (0.0-0.4); Platelet Count 274 10^3/uL (150-450)
[2022-12-13] MEDS ORDERED: Magnesium Sulfate IV 1GM/100ML 1 GM/100 ML BAG IV ONE (08:21)
[2022-12-13] MEDS: KCL 10 MEQ/50 ML IVPREMIX 10 MEQ/50 ML BAG IV SCH ×3 (09:44→11:51)
[2022-12-13] MEDS ORDERED: Azithromycin 500 mg/250 ml NS 500 MG/250 ML BAG IVPB SCH (15:00)
[2022-12-13] MEDS: cefTRIAXone 1 gm/50 mL D5W 1 GM/50 ML BAG IV SCH (15:27)
[2022-12-14 05:54] LABS: Hematocrit 36.7 % (35-45); Hemoglobin 10.9 g/dL (11.5-14.3); Mean Corpuscular Hemoglobin 18.6 pg (27-33); Mean Corpuscular Hgb Conc 29.7 g/dL (31-36); Mean Corpuscular Volume 62.5 fL (80-97); Red Blood Count 5.87 10^6/uL (3.63-4.92); White Blood Count 50.5 10^3/uL (3.8-11.8)
[2022-12-14 06:07] LABS: Calcium 7.4 mg/dL (8.6-10.3); Creatinine, Serum 0.58 mg/dL (0.51-0.95); Magnesium 1.9 mg/dL (1.9-2.7); Potassium 3.7 mmol/L (3.5-5.0); eGFR CKD-EPI 89.2 (>60)
[2022-12-14] MEDS ORDERED: Calcium Gluconate 2 GM in NS 0.9% 100 ml BAG 100 ML IV ONE (07:22)
[2022-12-14 07:37] LABS: Hypochromasia 2+; Microcytosis 3+; Tear Drop Cells 1+
[2022-12-14 07:38] LABS: Anisocytosis 3+; Platelet Morphology Large; Polychromasia 1+
[2022-12-14 07:39] LABS: ABS Basophils 0.6 10^3/uL (0.0-0.1); ABS Eosinophils 0.3 10^3/uL (0.0-0.5); ABS Lymphocytes 2.2 10^3/uL (1.0-4.8); ABS Monocytes 2.5 10^3/uL (0.0-0.9); ABS Nucleated RBC 0.04 10^3/ul; Eosinophil % 0.6 %; Lymphocyte % 4.3 %; Mean Platelet Volume 8.4 fL (7.5-11.2); Nucleated Red Blood Cells % 0.1 /100 WBC (0.0-0.4); Platelet Count 262 10^3/uL (150-450)
[2022-12-14] MEDS: cefTRIAXone 1 gm/50 mL D5W 1 GM/50 ML BAG IV SCH (15:18)
[2022-12-14] MEDS: Acetaminophen IV 1 GM/100ML 1,000 MG/100 ML BAG IV PRN (17:55)
[2022-12-15] MEDS: Acetaminophen IV 1 GM/100ML 1,000 MG/100 ML BAG IV PRN (02:40)
[2022-12-15 06:32] LABS: Hematocrit 37.2 % (35-45); Hemoglobin 10.9 g/dL (11.5-14.3); Mean Corpuscular Hemoglobin 18.5 pg (27-33); Mean Corpuscular Hgb Conc 29.3 g/dL (31-36); Mean Corpuscular Volume 63.1 fL (80-97); Platelet Count 274 10^3/uL (150-450); Red Cell Distribution Width 26.9 % (12-17); White Blood Count 45.5 10^3/uL (3.8-11.8)
[2022-12-15 06:45] LABS: Calcium 7.9 mg/dL (8.6-10.3); Creatinine, Serum 0.56 mg/dL (0.51-0.95); Magnesium 1.8 mg/dL (1.9-2.7); Potassium 3.8 mmol/L (3.5-5.0); eGFR CKD-EPI 89.9 (>60)
[2022-12-15 06:55] LABS: ABS Eosinophils 1.1 10^3/uL (0.0-0.5); ABS Lymphocytes 1.8 10^3/uL (1.0-4.8); ABS Monocytes 1.9 10^3/uL (0.0-0.9); ABS Neutrophils 38.6 10^3/uL (1.5-7.6); ABS Nucleated RBC 0.02 10^3/ul; Eosinophil % 2.4 %; Lymphocyte % 3.9 %
[2022-12-15 16:31] LABS: % Iron Saturation 9 % (15-55); .Transferrin 164 mg/dL (203-362); Iron < 20 ug/dL (50-212); Total Iron Binding Capacity 230 mcg/dL (250-450); Unsaturated Iron Binding 210 ug/dL
[2022-12-15 17:16] LABS: Ferritin 48.3 ng/mL (11-307)
[2022-12-15 17:21] LABS: Vitamin B12 342 pg/mL (180-914)
[2022-12-16 04:35] LABS: Urine Appearance Clear; Urine Bilirubin Negative (Negative); Urine Blood Negative (Negative); Urine Color Straw; Urine Glucose Negative (Negative); Urine Ketones Negative (Negative); Urine Nitrite Negative (Negative); Urine Protein Negative (Negative); Urine Specific Gravity 1.005 (1.002-1.030); Urine Urobilinogen Negative (Negative)
[2022-12-16 07:06] LABS: Hematocrit 37.7 % (35-45); Hemoglobin 11.4 g/dL (11.5-14.3); Mean Corpuscular Hemoglobin 18.8 pg (27-33); Mean Corpuscular Hgb Conc 30.2 g/dL (31-36); Mean Corpuscular Volume 62.4 fL (80-97); Red Blood Count 6.04 10^6/uL (3.63-4.92); Red Cell Distribution Width 27.4 % (12-17); White Blood Count 36.7 10^3/uL (3.8-11.8)
[2022-12-16 07:21] LABS: Calcium 8.2 mg/dL (8.6-10.3); Creatinine, Serum 0.53 mg/dL (0.51-0.95); Magnesium 1.8 mg/dL (1.9-2.7); Potassium 3.8 mmol/L (3.5-5.0); eGFR CKD-EPI 91.1 (>60)
[2022-12-16] MEDS ORDERED: Magnesium Sulfate 2 gm BAG 2 GM/50 ML BAG IVPB ONE (07:33)
[2022-12-16 08:24] LABS: ABS Basophils 1.1 10^3/uL (0.0-0.1); ABS Eosinophils 1.4 10^3/uL (0.0-0.5); ABS Lymphocytes 1.9 10^3/uL (1.0-4.8); ABS Monocytes 1.4 10^3/uL (0.0-0.9); ABS Neutrophils 30.8 10^3/uL (1.5-7.6); ABS Nucleated RBC 0.05 10^3/ul; Eosinophil % 3.8 %; Lymphocyte % 5.3 %; Mean Platelet Volume 8.9 fL (7.5-11.2); Nucleated Red Blood Cells % 0.1 /100 WBC (0.0-0.4); Platelet Count 304 10^3/uL (150-450)
[2022-12-17 05:43] LABS: Hematocrit 36.6 % (35-45); Hemoglobin 11.2 g/dL (11.5-14.3); Mean Corpuscular Hemoglobin 18.8 pg (27-33); Mean Corpuscular Hgb Conc 30.5 g/dL (31-36); Mean Corpuscular Volume 61.7 fL (80-97); Platelet Count 300 10^3/uL (150-450); Red Blood Count 5.93 10^6/uL (3.63-4.92); Red Cell Distribution Width 26.6 % (12-17)
[2022-12-17 05:53] LABS: Calcium 8.6 mg/dL (8.6-10.3); Creatinine, Serum 0.57 mg/dL (0.51-0.95); Magnesium 1.9 mg/dL (1.9-2.7); Potassium 3.9 mmol/L (3.5-5.0); eGFR CKD-EPI 89.6 (>60)
[2022-12-17 06:04] LABS: ABS Basophils 0.6 10^3/uL (0.0-0.1); ABS Eosinophils 1.4 10^3/uL (0.0-0.5); ABS Lymphocytes 1.9 10^3/uL (1.0-4.8); ABS Monocytes 1.3 10^3/uL (0.0-0.9); ABS Neutrophils 36.9 10^3/uL (1.5-7.6); Eosinophil % 3.3 %; Lymphocyte % 4.4 %; Nucleated Red Blood Cells % 0.2 /100 WBC (0.0-0.4)
[2022-12-17] MEDS ORDERED: Magnesium Sulfate 2 gm BAG 2 GM/50 ML BAG IVPB ONE (09:00)
[2022-12-17 09:15] LABS: Rapid COVID-19 Molecular Undetected (Undetected)
[2022-12-17 10:33] VITALS: BP 133/69
== END 2022-12-17 12:10 | DRG 871 ==
LOC: ED 11:31 → EDHOLD 11:31 → SUATTDRO 14:55 → MED 15:28 → SUATTDRO 12-13 13:40
PROVIDERS: ADMIT Internal Medicine; ATTEND Hospitalist